=== PATIENT | female | born 1995 | race Caucasian/White ===

== ENCOUNTER 2018-04-05 00:17 | Day surgery (SDC) | payer OTHER, BC ==
--- NOTE | 2018-04-04 21:37 | HISTORY AND PHYSICAL ---
DATE OF ADMISSION: April 05, 2018 CHIEF COMPLAINT Pelvic pain. HISTORY OF PRESENT ILLNESS Patient is a 22-year-old zero with pelvic pain beginning three months ago and has been unchanged despite use of Mirena. She reports aggravation by intercourse, and she has no relieving factors. She reports symptoms of abdominal fullness, nausea, and dyspareunia which have been unchanged despite conservative measures. CURRENT MEDICATIONS Mirena. PAST MEDICAL HISTORY HPV. PAST SURGICAL HISTORY 1. She had a knee scope in 2007. 2. Wrist scope in 2009. REVIEW OF SYSTEMS GENITOURINARY: Per HPI. GENERAL, SKIN, EYES, EARS, NOSE, MOUTH, NECK, RESPIRATORY, CARDIOVASCULAR, GASTROINTESTINAL, NEUROLOGICAL, AND PSYCHIATRIC: All reviewed and noncontributory. FAMILY HISTORY Grandparent with hypertension and heart disorder. SOCIAL HISTORY Drinks socially. Tobacco, she is a nonsmoker. 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 Denies illicit drug use. PHYSICAL EXAMINATION VITAL SIGNS: BP 100/64, temp 98.2, weight 128. CONSTITUTIONAL: Well-nourished, well-developed female in no distress. SKIN: Without rash or lesions. NECK: Supple, with masses. HEART: Regular rate and rhythm. LUNGS: Clear to auscultation bilaterally. ABDOMEN: Soft, nontender, nondistended with bowel sounds positive. EXTREMITIES: Nontender. No edema. PSYCHIATRIC: Alert and oriented times three. Normal mood and affect. PELVIC: Normal external female genitalia. Well-estrogenized vaginal lining. Cervix normal appearance. She had some uterine tenderness and left and right adnexal tenderness. ASSESSMENT AND PLAN Deep dyspareunia with pelvic pain. Plan to perform diagnostic laparoscopy. JIAN
[~2018-04-05] VITALS: Ht 162.6 cm; Wt 58.5 kg
[~2018-04-05 00:17] MED LIST: ACE3 PO; BCP; METR-160 PO; OMEP-218 PO; PER PO; TETR-30 PO; VALA100059 PO
[2018-04-05] MEDS ORDERED: LIDOCAINE/SOD BICARB 8.4% SYR ID ONE (06:30)
[2018-04-05] MEDS ORDERED: NORMOSOL R SOLN(*) 1000 ML BAG 1,000 ML IV PRN (06:30)
[2018-04-05] MEDS ORDERED: FAMOTIDINE 20 MG TAB PO ONE (06:30)
[2018-04-05] MEDS ORDERED: MIDAZOLAM 2 MG/2 ML VIAL IVP PRN (06:30)
[2018-04-05] MEDS ORDERED: PROPOFOL EMUL(*) 10MG/ML 20 ML 20 ML ONE (07:41)
[2018-04-05] MEDS ORDERED: ONDANSETRON 4 MG/2 ML VIAL ONE (07:41)
[2018-04-05] MEDS ORDERED: DEXAMETHASONE SOD 4 MG/ML VIAL ONE (07:41)
[2018-04-05] MEDS ORDERED: METOCLOPRAMIDE 10 MG/2 ML SDV ONE (07:41)
[2018-04-05] MEDS ORDERED: LIDOCAINE MPF 1% 5 ML VIAL ONE (07:41)
[2018-04-05] MEDS ORDERED: fentaNYL CITR 100 MCG/2 ML AMP ONE ×2 (07:42→10:08)
[2018-04-05 07:48] LABS: PLATELET COUNT, AUTOMATED 192 K/uL (150-450)
[2018-04-05] MEDS ORDERED: ROPIVACAINE 0.2% 20 ML VIAL ONE (08:15)
[2018-04-05 08:24] VITALS: BP 105/68
[2018-04-05] MEDS ORDERED: HYDROmorphone HCL 2 MG TAB PO ONE (08:40)
[2018-04-05] MEDS ORDERED: cefOXitin/DEX(*) 2GM/50ML PREM 50 ML IVPB ONE (08:40)
[2018-04-05] MEDS ORDERED: CELECOXIB 200 MG CAP PO ONE (08:40)
--- NOTE | 2018-04-05 08:43 | Post Operative Note ---
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 Day Date: Apr 05, 2018 Time: 09:48 Physicians Surgeon: NIKITA Anesthesia: CRECCA Diagnosis Pre-Op Diagnosis: PELVIC PAIN DYSMENORRHEA DYSPAREUNIA Post-Op Diagnosis: SAME ENDOMETRIOSIS Procedure Findings: UTERUS 6X5 CM NORMAL OVARIES, ENDOMETRIOSIS POSTERIOR CUL DE SAC AND RIGHT PELVIC SIDEWALL WITH ADHESIONS [id number] Procedure(s): LSCOPE EXCISIONAL BIOPSY POSTERIOR CUL DE SAC LESION FULGURATION OF ENDOMETRIOSIS AND ADHESIOLYSIS Complications: 0 Fluids Fluids: 600 CC NR IV Estimated Blood Loss: MINIMAL Dictated Date OP Note Dictated: Apr 05, 2018 Time OP Note Dictated: 10:11 Copies to: BRIANA SHELTON MD, JOHN MD Apr 05, 2018 08:43
[2018-04-05] MEDS ORDERED: ROCURONIUM BROM 10 MG/ML 5 ML ONE (09:00)
[2018-04-05] MEDS ORDERED: IBUP800T37 PO (09:05)
[2018-04-05] MEDS ORDERED: HYDR2TAB4 PO (09:05)
--- NOTE | 2018-04-05 09:06 | OB/GYN Discharge Summary ---
Discharge Summary Reason for Hosp/Final Diag: (1) Status post laparoscopic procedure Hospital Course & Plan: LSCOPE EXCISIONAL BIOPSY AND FULGURATION OF ENDOMETRIOSIS PERFORMED WITH ADHESIOLYSIS. NO COMPLICATIONS TOLERATED WELL Lates Vital Signs Vital Signs Date Time Temp Pulse Resp B/P (MAP) Pulse Ox O2 Delivery O2 Flow Rate FiO2 04/05/18 08:24 97.9 52 16 105/68 (80) 98 Room Air Weight (Pounds): 129 Result Diagram: 04/05/18 0736 Condition: Improved Discharge: Home, Self Half-Way Meds Active Scripts Ibuprofen (IBUPROFEN) 800 Mg Tablet, 1 TAB PO Q8H, #30 TAB 0 Refills Take with food every 8 hours. Prov:BRIANA BACH MD 04/05/18 Hydromorphone Hcl (HYDROMORPHONE HCL) 2 Mg Tablet, 2 MG PO Q4H for PAIN, #20 TAB 0 Refills Prov:BRIANA BACH MD 04/05/18 [facility] [phone], Dr. Bach [phone] Follow up in: 2 wks PO Discharge Diet: As Tolerates Discharge Activity: Pelvic Rest Copies to: BRIANA BACH MD, JOHN MD Apr 05, 2018 09:06
[2018-04-05] MEDS ORDERED: SUGAMMADEX SOD 200 MG/2 ML SDV ONE ×2 (09:10→09:12)
[2018-04-05] MEDS ORDERED: NS 0.9% IRRIGATION 1000ML PLCT IR ONE (10:01)
[2018-04-05] MEDS ORDERED: LR(*) 1000 ML BAG 1,000 ML IV ONE (10:04)
[2018-04-05] MEDS ORDERED: METOCLOPRAMIDE 10 MG/2 ML SDV IVP PRN (10:05)
[2018-04-05] MEDS ORDERED: HYDROmorphone HCL 2 MG TAB PO PRN (10:05)
[2018-04-05 10:44] VITALS: BP 101/68
[2018-04-05 11:11] VITALS: BP 108/60
[2018-04-05 11:42] VITALS: BP 110/66
[2018-04-05 11:43] VITALS: BP 102/67
--- NOTE | 2018-04-05 12:08 | OPERATIVE REPORT 1 ---
EVENT DATE: April 05, 2018 SURGEON: Michael Bach M.D. ANESTHESIOLOGIST: James Parra M.D. ANESTHESIA: General. PREOPERATIVE DIAGNOSIS 1. Pelvic pain. 2. Dysmenorrhea. 3. Dyspareunia. POSTOPERATIVE DIAGNOSIS 1. Pelvic pain. 2. Dysmenorrhea. 3. Dyspareunia. 4. Endometriosis. PROCEDURE PERFORMED Laparoscopic excisional biopsy of posterior cul-de-sac lesion with fulguration of endometriosis and adhesiolysis. COMPLICATIONS None. FLUIDS 600 mL Normosol IV. ESTIMATED BLOOD LOSS Minimal. INDICATIONS Patient is a 22-year-old G-0 with history of pelvis pain, dyspareunia and dysmenorrhea who had tried conservative measurements to control symptoms; however, was unsuccessful. Patient desired to proceed with diagnostic laparoscopy. FINDINGS Uterus 6x5 cm. Normal ovaries. She had endometriosis of the posterior cul-de- sac and right pelvic sidewall with adhesion in the right pelvic sidewall. DESCRIPTION OF PROCEDURE After inform consent was obtained, the patient was taken to the operating room with IV running and placed in the supine position, where general anesthesia was obtained without difficulty. She was then placed in the [facility] and examined under anesthesia with above findings. She was prepped and draped in the usual fashion and the bladder was drained. Side-out speculum was placed into the vagina and the anterior lip of the cervix was grasped with a single- tooth tenaculum. The uterus sounded to 8 cm. #6 NEIL uterine manipulator was advanced into the uterine cavity, providing means to manipulate the uterus. The remainder of the instruments were removed from the vagina. Legs were lowered. Attention was then turned to the abdomen. 0.2 Naporin infiltrate was infiltrated into the umbilicus. Skin incision was made with scalpel. A Veress needle was advanced into the abdominal cavity. Once placed, normal CO2 filling pressures were noted. After adequate insufflation, a 5 mm bladeless trocar was advanced under laparoscopic guidance and intra-abdominal placement was confirmed by laparoscopy. No injuries were noted at the time entry A right lateral port was then placed in similar fashion. After 0.2 Naporin, skin incision with scalpel and 5 mm bladeless trocar was advanced under direct visualization. The patient was placed in Trendelenburg position. The lesion on the right pelvic sidewall was noted. The appendix was retrocecal and appeared normal, although there was some filmy bands of adhesions around the appendix itself. There were adhesions of the colon to the pelvic sidewall. These were taken down with Gyrus cutting forceps and the colon mobilized to get better visualization of the appendix, which appeared normal. The endometriosis lesion on the right pelvic sidewall near the adhesion was then fulgurated. Bowel was allowed to escape from the pelvis. There were multiple lesions in the posterior cul-de-sac. Posterior cul-de-sac lesions were biopsied and sent to pathology. Endometriosis lesions were then all fulgurated. No lesions were noted in the posterior ovarian fossa or anterior cul-de-sac or the remainder of the pelvis. Gas was allowed to escape from the abdomen. The patient was taken out of Trendelenburg positioning and all instrument removed from the abdominal cavity. The incisions were closed with 4-0 Maxon and Dermabond. The NEIL was removed from the vagina. The patient was taken out of [facility], awakened from anesthesia and taken to the recovery room in stable condition. JIAN
[2018-04-05] MEDS ORDERED: IBUPROFEN 800 MG TAB PO SCH (17:00)
== END 2018-04-05 10:44 | disposition home or self-care (01) ==
LOC: OR 00:17
PROVIDERS: ATTEND Obstetrics & Gynecology
DX: R10.2 Pelvic and perineal pain (principal); N94.6 Dysmenorrhea, unspecified; N94.10 Unspecified dyspareunia
CPT/HCPCS: 36415; 49321; 58662; 84703; 85025; 88305; J0694; J1100; J2001; J2405; J2704; J2765; J3010; J2795

== ENCOUNTER 2018-11-18 02:46 | Day surgery (SDC) | payer OTHER, BC ==
[~2018-11-18] VITALS: Ht 162.6 cm; Wt 59.4 kg
[2018-11-18] VITALS (7 sets, daily range): BP systolic 122–140; BP diastolic 77–94
[~2018-11-18 02:46] MED LIST changes: +HYDR2TAB4 PO; +IBUP800T37 PO; +LEUP11.26 IM; +LEUP3.753 IM; -METR-160 PO; +METR500T15 PO; +NORE5TAB6
[2018-11-18] MEDS ORDERED: PROPOFOL EMUL(*) 10MG/ML 20 ML 20 ML ONE (07:04)
[2018-11-18] MEDS ORDERED: LIDOCAINE MPF 1% 5 ML VIAL ONE (07:04)
[2018-11-18] MEDS ORDERED: ONDANSETRON 4 MG/2 ML VIAL ONE (07:04)
[2018-11-18] MEDS ORDERED: DEXAMETHASONE SOD 4 MG/ML VIAL ONE (07:04)
[2018-11-18] MEDS ORDERED: fentaNYL CITR 100 MCG/2 ML AMP ONE ×2 (07:05→08:36)
[2018-11-18] MEDS ORDERED: SUGAMMADEX SOD 200 MG/2 ML SDV ONE (07:07)
[2018-11-18] MEDS ORDERED: KETAMINE HCL 200 MG/20 ML MDV ONE (07:10)
[2018-11-18] MEDS ORDERED: DEXAMETHASONE SOD PHOS 10MG/ML ONE (07:12)
[2018-11-18] MEDS ORDERED: NORMOSOL R SOLN(*) 1000 ML BAG 1,000 ML IV PRN (07:25)
[2018-11-18] MEDS ORDERED: MIDAZOLAM 2 MG/2 ML VIAL IVP PRN (07:25)
[2018-11-18] MEDS ORDERED: LIDOCAINE/SOD BICARB 8.4% SYR ID ONE (07:25)
[2018-11-18] MEDS ORDERED: FAMOTIDINE 20 MG TAB PO ONE (07:25)
[2018-11-18] MEDS ORDERED: ceFAZolin(*) 1 GM VIAL 1 GM in NS(*) 0.9% 100 ML ADDVANT BAG 100 ML IVPB ONE (07:25)
[2018-11-18] MEDS ORDERED: AMOX500T10 PO (08:41)
[2018-11-18] MEDS ORDERED: OXYC-865 PO (08:42)
[2018-11-18] MEDS ORDERED: LIDO15SO2 PO (08:43)
--- NOTE | 2018-11-18 08:44 | OPERATIVE REPORT 1 ---
EVENT DATE: November 18, 2018 SURGEON: Elmo Fabian MD ANESTHESIOLOGIST: Bharat Huang MD ANESTHESIA: LMA PROCEDURE PERFORMED Tonsillectomy. PREOPERATIVE DIAGNOSIS Recurrent acute tonsillitis. POSTOPERATIVE DIAGNOSIS Recurrent acute tonsillitis. INDICATIONS Please refer to the preoperative note. DESCRIPTION OF PROCEDURE The patient was positively identified in the preoperative area. She was accompanied there by her mother. Risks and benefits were explained including, but not limited to, bleeding, infection and those associated with anesthesia. The patient acknowledged understanding those risks. She was then brought back to the operating suite, laid supine on the operating table and anesthesia was administered. Once asleep, the patient was positioned, prepped and draped in the usual sterile fashion. A McIvor Mouth Gag was placed in the patient's oral cavity. Red rubber catheter was placed through the right nostril and utilized to suspend the soft palate. The patient was noted to have 2+ tonsils bilaterally. The right tonsil was grasped with curved Allis forceps and carefully dissected from the lateral pharyngeal wall with suction Bovie electrocautery. In a similar fashion, the contralateral tonsil was removed. Hemostasis was further obtained with suction Bovie electrocautery. The patient was then returned to Anesthesia for emergence. ESTIMATED BLOOD LOSS 25 cc. COMPLICATIONS No complications. MTDD
--- NOTE | 2018-11-18 09:20 | NUR ---
0920- PT BROUGHT TO BAY 2 FROM PACU, PT IN SF POSITION, PT IS A/O X 3, SHE IS POLITE AND COOPERATIVE WITH CARES AND STAFF, VSS, SBAR REPORT FROM CAMERON RN, IV IS PATENT, NO S/S OF INFILTRATION 0938- PT TOLERATING SIPS OF WATER, TOLERATED A JELLO IN PACU, REPORTS 6/10 THROAT PAIN, BACK OF THROAT IS OMID BUT NO DRAINAGE NOTED, PO ANALGESIC GIVEN SEE EMAR FOR DETAILS 0941- NOLAN LERMA AT BEDSIDE, PT WOULD LIKE TO REST, PLACED PT IN POSITION OF COMFORT, LIGHTS LOWERED, CALL LIGHT WITHIN REACH
--- NOTE | 2018-11-18 09:54 | NUR ---
0954- PT RESTING WITH EYES CLOSED, [facility] AT BEDSIDE, S
--- NOTE | 2018-11-18 09:58 | NUR ---
0958- SL IV, NO S/S OF INFILTRATION, NOLAN LERMA GIVEN PRESCRIPTIONS TO GO FILL, PT WILL CONTINUE TO REST
--- NOTE | 2018-11-18 10:33 | NUR ---
1033- RN INTO ROOM, PT AWAKE REPORT SHE CANT QUIET FALL ASLEEP, REPOSITIONED PT INTO A SUPINE POSITION OF COMFORT
--- NOTE | 2018-11-18 10:54 | NUR ---
1054- NOLAN LERMA BACK AT BEDSIDE 1055- DR. SESAY AT BEDSIDE 1100- ORTHOSTATIC VSS SEE VS CHART FOR DETAILS 1103- PT PLACED LEFT LE WALKING BOOT ON S/T SPRAIN 1105- PT AMBULATORY TO RESTROOM, STEADY GAIT NOTED
--- NOTE | 2018-11-18 12:15 | NUR ---
1110- PT DRESSED 1112- D/C IV WITH CATH INTACT, PRESSURE DRESSING APPLIED WITH GAUZE AND COBAND 1114- ASSESSMENT WNL SEE CHART FOR DETAILS 1119- REVIEWED D/C INSTRUCTIONS WITH PT AND NOLAN 1125- PT WHEEL CHAIRED TO AMY, ACCOMPANIED BY NOLAN LERMA AND SAIRA FERNANDES
[2018-11-22] MEDS ORDERED: OXYC-865 PO (08:45)
== END 2018-11-18 09:22 | disposition home or self-care (01) ==
LOC: OR 02:46
PROVIDERS: ATTEND Otolaryngology
DX: J03.91 Acute recurrent tonsillitis, unspecified (principal)
CPT/HCPCS: 42826; 81025; 88304; J0690; J1100; J2001; J2250; J2405; J2704; J3010; J3490; J7050

== ENCOUNTER 2018-11-24 05:43 | Emergency (ER) | payer OTHER, BC ==
[~2018-11-24 05:43] MED LIST changes: +AMOX500T10 PO; +LIDO15SO2 PO; +OXYC-865 PO
--- NOTE | 2018-11-24 05:54 | ER Report ---
History and Physical Time Seen By MD: 05:53 Hx. of Stated Complaint: pt had tonsils out last week, woke up this evening with severe pain. took 2 ibuprofen, 2 norcos and a lidocaine spray. (DON THRASHER MD) Time Seen By MD: 07:44 (MK VARGAS DO) HPI/ROS CHIEF COMPLAINT: throat pain HISTORY OF PRESENT ILLNESS: This is a 23 year old female. She had tonsillectomy with Dr. Allan on 11/18/2018. Since then was doing well, but the last 24 hours has had severe increase in pain. Took her Percocet and the viscous Lidocaine without relief. Started taking Ibuprofen as well, earlier than instructed, but trying to get the pain controlled. Lidocaine works for about 15 minutes, but then cannot use for another 2 hours, swish and spit. More difficulty swallowing and a little trouble with breathing as well. She has felt a little warm, but no noted fevers. Has has a small amount of bleeding and notes a new clot in the left side. Has had some constipation from the pain medicines, and used some Milk of Magnesia yesterday with good results. No trouble with urination. (DON THRASHER MD) HPI/ROS Please see Dr. Thrasher note (MK VARGAS DO) Allergies: Coded Allergies: No Known Drug Allergies (Verified , 01/17/15) Home Meds Active Scripts Oxycodone Hcl/Acetaminophen (PERCOCET 5-325 MG TABLET) 1 Each Tablet, 1 TAB PO Q4H PRN for PAIN, #10 TAB 0 Refills Prov:MK VARGAS DO 11/24/18 Ibuprofen (IBUPROFEN) 800 Mg Tablet, 1 TAB PO Q8H, #30 TAB 0 Refills Take with food every 8 hours. Prov:BRIANA SHELTON MD 04/05/18 Reported Medications Lidocaine HCl VISCOUS 2% (Lidocaine Viscous) 2 % Solution, 15 ML PO Q2H, #500 ML 1 Refill 11/18/18 Oxycodone Hcl/Acetaminophen (PERCOCET 5-325 MG TABLET) 1 Each Tablet, 1-2 EACH PO Q6H PRN for PAIN, #30 TAB 0 Refills MAX 8 IN 24 11/18/18 Amoxicillin 500 Mg Tab (AMOXICILLIN 500 MG TAB) 500 Mg Tablet, 1 TAB PO Q8H for 7 Days, #21 TAB 0 Refills 11/18/18 Leuprolide Acet 11.25 Mg [id number] (LUPRON DEPOT 11.25 MG [id number]) 11.25 Mg Syringekit, 11.25 MG IM ONCE, SYR 11/04/18 Norethindrone Acetate (Norethindrone AC (Lupaneta)) 5 Mg Tablet 10/14/18 Discontinued Scripts Oxycodone Hcl/Acetaminophen (PERCOCET 5-325 MG TABLET) 1 Each Tablet, 1 EACH PO Q6H PRN for PAIN for 7 Days, #15 TAB Prov:IVONNE ALLAN JR, MD 11/22/18 Reviewed Nurses Notes: Yes (DON THRASHER MD) Hx Smoking: No Smoking Status: Never Smoker Exposure to Second Hand Smoke?: No Hx Substance Use Disorder: No Hx Alcohol Use: Yes (DON THRASHER MD) Constitutional Vital Sign - Last 24 Hours 11/24/18 11/24/18 11/24/18 11/24/18 05:46 05:48 06:00 06:13 Temp 98.7 Pulse 71 72 Resp 16 B/P (MAP) 149/96 (113) 149/96 131/105 (114) Pulse Ox 95 96 O2 Delivery Room Air 11/24/18 06:30 B/P (MAP) 99/86 (90) (MK VARGAS DO) Physical Exam General Appearance: The patient is alert. No acute distress. Non-toxic in appearance. Eyes: Pupils are equal, round. No pallor, injection or icterus. ENT: Mucous membranes are moist. Normal oral mucosa. Posterior oropharynx with post-operative changes, eschar, small area of fresh blood with clot on left area. Normal nasal mucosa. Normal tympanic membranes and canals. Neck: Suppler. Has diffuse tenderness. Cannot appreciate asymmetry, diffuse swelling, but feels and appears to mild from external exam. No significant lymphadenopathy appreciated. Respiratory: Breathing easily and unlabored. Lungs are clear to auscultation. Cardiovascular: Regular rate and rhythm. No murmurs, gallops or rubs. Neurological: Alert and oriented x3. Skin: Warm and dry. No rashes. DIFFERENTIAL DIAGNOSIS: After history and physical exam, differential diagnosis was considered for increasing pain after tonsillectomy the last 24 hours, not controlled with medicines and question of subjective fevers. Will try to improve pain at this time and get CT scan and labs. Viscous Lidocaine with Benadryl and Maalox for topical control, swish and swallow. IV NS and Dilaudid and CT scan neck with contrast ordered. (DON THRASHER MD) Physical Exam Please see Dr. Thrasher note (MK VARGAS DO) Medical Decision Making Data Points Result Diagram: 11/24/18 0616 11/24/18 0616 Laboratory Hematology Test 11/24/18 06:16 Red Blood Count 5.02 M/uL (4.17-5.56) Mean Corpuscular Volume 91.8 fL (80.0-96.0) Mean Corpuscular Hemoglobin 32.3 pg (26.0-33.0) Mean Corpuscular Hemoglobin Concent 35.2 g/dL (32.0-36.0) Red Cell Distribution Width 13.6 % (11.5-14.5) Mean Platelet Volume 8.5 fL (7.2-11.1) Neutrophils (%) (Auto) 59.5 % (39.4-72.5) Lymphocytes (%) (Auto) 28.8 % (17.6-49.6) Monocytes (%) (Auto) 7.8 % (4.1-12.4) Eosinophils (%) (Auto) 3.3 % (0.4-6.7) Basophils (%) (Auto) 0.6 % (0.3-1.4) Nucleated RBC Relative Count (auto) 0.0 /100WBC Neutrophils # (Auto) 5.9 K/uL (2.0-7.4) Lymphocytes # (Auto) 2.9 K/uL (1.3-3.6) Monocytes # (Auto) 0.8 K/uL (0.3-1.0) Eosinophils # (Auto) 0.3 K/uL (0.0-0.5) Basophils # (Auto) 0.1 K/uL (0.0-0.1) Nucleated RBC Absolute Count (auto) 0.00 K/uL Sodium Level 136 mmol/L (137-145) Potassium Level 4.2 mmol/L (3.5-5.0) Chloride Level 104 mmol/L (98-107) Carbon Dioxide Level 22 mmol/L (22-31) Blood Urea Nitrogen 12 mg/dl (7-18) Creatinine 0.80 mg/dl (0.52-1.04) Glomerular Filtration Rate Calc > 60.0 Random Glucose 88 mg/dl (75-110) Calcium Level 9.5 mg/dl (8.4-10.2) Total Bilirubin 0.1 mg/dl (0.2-1.3) Aspartate Amino Transf (AST/SGOT) 22 U/L (0-35) Alanine Aminotransferase (ALT/SGPT) 19 U/L (0-56) Alkaline Phosphatase 47 U/L (0-126) Total Protein 7.6 g/dl (6.3-8.2) Albumin 4.6 g/dl (3.5-5.0) Chemistry Test 11/24/18 06:16 White Blood Count 9.9 k/uL (4.5-11.0) Red Blood Count 5.02 M/uL (4.17-5.56) Hemoglobin 16.2 g/dL (12.0-16.0) Hematocrit 46.1 % (34.0-47.0) Mean Corpuscular Volume 91.8 fL (80.0-96.0) Mean Corpuscular Hemoglobin 32.3 pg (26.0-33.0) Mean Corpuscular Hemoglobin Concent 35.2 g/dL (32.0-36.0) Red Cell Distribution Width 13.6 % (11.5-14.5) Platelet Count 242 K/uL (150-450) Mean Platelet Volume 8.5 fL (7.2-11.1) Neutrophils (%) (Auto) 59.5 % (39.4-72.5) Lymphocytes (%) (Auto) 28.8 % (17.6-49.6) Monocytes (%) (Auto) 7.8 % (4.1-12.4) Eosinophils (%) (Auto) 3.3 % (0.4-6.7) Basophils (%) (Auto) 0.6 % (0.3-1.4) Nucleated RBC Relative Count (auto) 0.0 /100WBC Neutrophils # (Auto) 5.9 K/uL (2.0-7.4) Lymphocytes # (Auto) 2.9 K/uL (1.3-3.6) Monocytes # (Auto) 0.8 K/uL (0.3-1.0) Eosinophils # (Auto) 0.3 K/uL (0.0-0.5) Basophils # (Auto) 0.1 K/uL (0.0-0.1) Nucleated RBC Absolute Count (auto) 0.00 K/uL Glomerular Filtration Rate Calc > 60.0 Calcium Level 9.5 mg/dl (8.4-10.2) Total Bilirubin 0.1 mg/dl (0.2-1.3) Aspartate Amino Transf (AST/SGOT) 22 U/L (0-35) Alanine Aminotransferase (ALT/SGPT) 19 U/L (0-56) Alkaline Phosphatase 47 U/L (0-126) Total Protein 7.6 g/dl (6.3-8.2) Albumin 4.6 g/dl (3.5-5.0) (MK VARGAS DO) EKG/Imaging Imaging PATIENT NAME: Tracey Gil : 1995 MR: [id number] V: [id number] EXAM DATE: ORDERING PHYSICIAN: DON THRASHER TECHNOLOGIST: Location: [facility] - [place] Patient: Tracey Gil : 1995 Visit/Account:[id number] Date of Sevice: 11/24/2018 CT of the neck, with contrast: Indication: Neck pain. History of recent tonsillectomy. Technique: Helical CT was performed through the neck following the injection of 75 mL of Isovue-370. Multiplanar reconstructions are reviewed. One of the following dose optimization techniques was utilized in the performance of this exam: Automated exposure control; adjustment of the mA and/or kV according to the patient's size; or use of an iterative reconstruction technique. Specific details can be referenced in the facility's radiology CT exam operational policy. Comparison: None. Findings: There is no evidence of mass, fluid collection, or focal inflammatory process in the nasopharynx, oropharynx, or hypopharynx. No focal deformity of the airway is identified. There are no signs of significant lymphadenopathy. There is uniform enhancement of the visualized vascular structures. The skeletal structures are well mineralized and intact. The limited images through the upper chest appear unremarkable. Impression: Unremarkable CT of the neck. (MK VARGAS DO) ED Course/Re-evaluation ED Course I assumed patient care from Dr. Thrasher at 7:00 at shift change. I evaluated the patient at 7:[address] imaging report resulted that there was no acute findings of abscess or tracking infection. I contacted Dr. Allan who is the patient's ENT. Dr. Allan recommended holding off on NSAIDs, giving the patient Decadron, hydrating. I updated the patient regarding these recommendations and patient voiced understanding. Return precautions provided. Decision to Disposition Date: Nov 24, 2018 Decision to Disposition Time: 07:56 (MK VARGAS DO) Depart Departure Latest Vital Signs Vital Signs Date Time Temp Pulse Resp B/P (MAP) Pulse Ox O2 Delivery O2 Flow Rate FiO2 11/24/18 06:30 99/86 (90) 11/24/18 06:13 72 96 11/24/18 05:48 98.7 16 Room Air (MK VARGAS DO) Impression: Primary Impression: Status post tonsillectomy Condition: Improved Disposition: HOME OR SELF-CARE Referrals: BELKIS VIZCARRA MD (PCP) New Scripts Oxycodone Hcl/Acetaminophen (PERCOCET 5-325 MG TABLET) 1 Each Tablet 1 TAB PO Q4H PRN for PAIN, #10 TAB 0 Refills Prov: MK VARGAS DO 11/24/18 Patient Instructions: Tonsillectomy (GEN) Additional Instructions: Please continue to hydrate. You were given a prescription for Percocet refill, you may take 1 every 6 hours as needed for pain control. Please follow-up with Dr. Allan on Sunday and return to the emergency department if you develop bleeding, difficulty breathing, difficulty swallowing. Please hold off on taking NSAIDs until you are cleared to do so by Dr. Allan. DON THRASHER MD Nov 24, 2018 05:54 MK VARGAS DO Nov 24, 2018 07:46
[2018-11-24] MEDS ORDERED: NS(*) 0.9% 1000 ML BAG 1,000 ML IV ONE (06:05)
[2018-11-24] MEDS ORDERED: HYDROMORPHONE HCL 1 MG/ML SYRINGE IVP ONE (06:05)
[2018-11-24] MEDS ORDERED: MAG HYD/AL HYD/SIMETH 30ML UDC PO ONE (06:05)
[2018-11-24] MEDS ORDERED: LIDOCAINE 2% VISC SLN 15ML UDC PO ONE (06:05)
[2018-11-24 06:25] LABS: PLATELET COUNT, AUTOMATED 242 K/uL (150-450)
[2018-11-24] MEDS ORDERED: IOPAMIDOL 76% 150 ML INFUS BTL 150 ML ONE (06:36)
--- NOTE | 2018-11-24 07:27 | RADIOLOGY IMAGING REPORT ---
[place] [facility] [place] Tarcey Gil : 1995 MR: [id number] V: [id number] EXAM DATE: ORDERING PHYSICIAN: DON GLORIA TECHNOLOGIST: Location: [facility] - [place] Patient: Tracey Gil : 1995 Visit/Account:[id number] Date of Sevice: 11/24/2018 CT of the neck, with contrast: Indication: Neck pain. History of recent tonsillectomy. Technique: Helical CT was performed through the neck following the injection of 75 mL of Isovue-370. Multiplanar reconstructions are reviewed. One of the following dose optimization techniques was utili zed in the performance of this exam: Automated exposure control; adjustment of the mA and/or kV accor ding to the patient's size; or use of an iterative reconstruction technique. Specific details can be referenced in the facility's radiology CT exam operational policy. Comparison: None. Findings: There is no evidence of mass, fluid collection, or focal inflammatory process in the nasopharynx, trell pharynx, or hypopharynx. No focal deformity of the airway is identified. There are no signs of signif icant lymphadenopathy. There is uniform enhancement of the visualized vascular structures. The skeletal structures are well mineralized and intact. The limited images through the upper chest appear unremarkable. Impression: Unremarkable CT of the neck. Report Dictated By: Jarod Alcantar MD at 11/24/2018 7:09 AM Report E-Signed By: Jarod Alcantar MD at 11/24/2018 7:23 AM [id number]
[2018-11-24] MEDS ORDERED: DEXAMETHASONE SOD PHOS 10MG/ML IVP ONE (07:55)
[2018-11-24] MEDS ORDERED: OXYC-865 PO (07:58)
[2018-11-24 08:00] VITALS: BP 98/60
== END 2018-11-24 08:19 | disposition home or self-care (01) ==
LOC: ER 05:59
DX: R07.0 Pain in throat (principal); Z98.890 Other specified postprocedural states
CPT/HCPCS: 70491; 85025; 96361; 96374; 96375; 99284; J1100; J1170; J7030; Q0163; Q9967; 82040; 82247; 82310; 82374; 82435; 82565; 82947; 84075; 84132; 84155; 84295; 84450; 84460; 84520

== ENCOUNTER → 2019-01-28 | Outpatient (CLI) | payer OTHER, BC ==
--- NOTE | 2019-01-28 10:39 | RADIOLOGY IMAGING REPORT ---
FACILITY: [facility] - [place] PATIENT NAME: Tracey Gil : 1995 MR: [id number] V: [id number] EXAM DATE: ORDERING PHYSICIAN: JOZEF GUTIERREZ TECHNOLOGIST: Location: [facility] - [place] Patient: Tracey Gil : 1995 Visit/Account:[id number] Date of Sevice: 01/28/[address] scan without contrast HISTORY: Fall, dizziness, headache COMPARISONS: March 11, 2011 TECHNIQUE: Non-contrast head CT was performed with sagittal and coronal reformations. One of the following dose optimization techniques was utilized in the performance of this exam: autom ated exposure control; adjustment of the mA and/or kV according to patient size; or use of iterative reconstruction technique. Specific details can be referenced in the facility's radiology CT exam ope rational policy. FINDINGS: There is no intracranial hemorrhage, hydrocephalus or midline shift. The basal cisterns, moody-white differentiation, and convexity sulci are maintained. Left cheek region subcutaneous edema. Left front al scalp subcutaneous edema. The mastoid air cells are clear. The paranasal sinuses are clear. The osseous structures are normal . IMPRESSION: No acute intracranial abnormality. Left frontal scalp and left cheek subcutaneous edema. Report Dictated By: Venancio Goetz MD at 01/28/2019 10:28 AM Report E-Signed By: Venancio Goetz MD at 01/28/2019 10:34 AM WSN:[id number]
--- NOTE | 2019-01-28 10:49 | RADIOLOGY IMAGING REPORT ---
FACILITY: [facility] PATIENT NAME: Tracey Gil : 1995 MR: [id number] V: [id number] EXAM DATE: ORDERING PHYSICIAN: JOZEF GUTIERREZ TECHNOLOGIST: [place] [facility] [place] Tracey Gil : 1995 Visit/Account:[id number] Date of Sevice: 01/28/2019 EXAMINATION: CT facial bones without IV contrast HISTORY: Fall, left eye region pain COMPARISON: March 21, 2011 TECHNIQUE: Axial images were obtained through the facial bones. Coronal and sagittal reformatted heydi ges were generated from the source data. No IV contrast was administered. One of the following dose optimization techniques was utilized in the performance of this exam: autom ated exposure control; adjustment of the mA and/or kV according to patient size; or use of iterative reconstruction technique. Specific details can be referenced in the facility's radiology CT exam ope rational policy. FINDINGS: Mastoid air cells and sinuses: Small right maxillary sinus mucous retention cyst, otherwise clear si nuses and mastoid air cells. Osseous structures including mandible and orbital lucio: No fracture or osseous destruction. Visible soft tissues including orbital soft tissues and upper neck: Left frontal scalp and left morelia k subcutaneous edema. Left periorbital preseptal soft tissue swelling. Visible intracranial structures: Normal. IMPRESSION: 1. No fracture identified. 2. Left frontal scalp, left cheek and left periorbital preseptal soft tissue swelling/edema. Report Dictated By: Venancio Goetz MD at 01/28/2019 10:34 AM Report E-Signed By: Venancio Goetz MD at 01/28/2019 10:45 AM WSN:[id number]
== END ==
LOC: CT 09:55
PROVIDERS: ATTEND Physician Assistant
DX: S06.0X9A Concussion with loss of consciousness of unspecified duration, initial encounter (principal); W19.XXXA Unspecified fall, initial encounter
CPT/HCPCS: 70450; 70486